=== PATIENT | male | born 1955 | race African-American/Black ===

== ENCOUNTER 2017-09-29 02:43 | Inpatient (IN) | payer BC ==
[2017-09-29 03:25] LABS: BASO % 0.7 % (0-2.0); EOS % 5.4 % (0-4.5); HEMATOCRIT 37.6 % (35.4-49); HEMOGLOBIN 12.9 GM/dL (11.7-16.9); LYMPH % 42.9 % (8-40); MCH 29.6 pg (25.7-33.7); MCHC 34.1 g/dl (32.0-35.9); MEAN CELL VOLUME 86.6 fl (80-96); MEAN PLT VOLUME 8.1 fl (7.5-11.1); MONO % 8.5 % (3.8-10.2); NEUT % 42.5 % (42.8-82.8); PLATELET COUNT 202 K/MM3 (134-434); RBC 4.35 M/mm3 (4.00-5.60); WHITE BLOOD COUNT 4.6 K/mm3 (4.0-10.0)
--- NOTE | 2017-09-29 03:38 | PDOC ---
History of Present Illness - General Chief Complaint: Rectal Bleed Stated Complaint: RECTAL BLEED Time Seen by Provider: 09/29/17 02:46 History Source: Patient Exam Limitations: No Limitations - History of Present Illness Initial Comments: 09/29/17 03:35 62m with pmh of asthma presents with brbpr as he was moving his bowels around 2am tonight. Denies abdominal pain, not on anticoagulation, no previous history of rectaql bleed, no history of hemorrhoids. No Nausea, vomiting or sick contacts. Had a colonoscopy done 4 years ago and was negative.. 09/29/17 03:38 Brought with him bloody toilet paper. Past History - Past Medical History Allergies/Adverse Reactions: Allergies Allergy/AdvReac Type Severity Reaction Status Date / Time No Known Drug Allergies Allergy Verified 09/29/17 02:46 Home Medications: Ambulatory Orders Aspirin [ASA -] 81 mg PO DAILY 05/13/13 Budesonide/Formeterol Fumarate [SYMBICORT 160/4.5mcg -] 1 inh IH DAILY 09/29/17 Omeprazole 20 mg PO DAILY 09/29/17 Asthma: Yes COPD: No GI Disorders: Yes - Surgical History Abdominal Surgery: Yes (hernia repair) GI Surgery: Yes (hernia repair) - Suicide/Smoking/Psychosocial Hx Smoking History: Never smoked Have you smoked in the past 12 months: No Information on smoking cessation initiated: No Hx Alcohol Use: No Drug/Substance Use Hx: No Substance Use Type: None Review of Systems - Review of Systems Able to Perform ROS?: Yes Is the patient limited Amharic proficient: No Constitutional: No: Symptoms Reported HEENTM: No: Symptoms Reported Respiratory: No: Symptoms reported Cardiac (ROS): No: Symptoms Reported ABD/GI: Yes: See HPI : No: Symptoms Reported Musculoskeletal: No: Symptoms Reported Integumentary: No: Symptoms Reported All Other Systems: Reviewed and Negative *Physical Exam - Vital Signs Last Vital Signs Temp Pulse Resp BP Pulse Ox 97.5 F L 92 H 20 137/80 98 09/29/17 02:46 09/29/17 02:46 09/29/17 02:46 09/29/17 02:46 09/29/17 02:46 - Physical Exam General Appearance: Yes: Nourished, Appropriately Dressed. No: Apparent Distress HEENT: positive: EOMI, MAYRA Respiratory/Chest: positive: Lungs Clear, Normal Breath Sounds. negative: Chest Tender, Respiratory Distress Cardiovascular: positive: Regular Rhythm, Regular Rate, S1, S2 Gastrointestinal/Abdominal: positive: Normal Bowel Sounds, Flat, Soft. negative : Tender, Guarding, Rebound, Tenderness Rectal Exam: positive: normal rectal tone, heme positive stool. negative: hemorrhoids Integumentary: positive: Normal Color, Dry, Warm Neurologic: positive: Fully Oriented, Alert, Normal Mood/Affect ED Treatment Course - LABORATORY CBC & Chemistry Diagram: 09/29/17 03:19 09/29/17 03:19 Medical Decision Making - Medical Decision Making 09/29/17 03:38 62m presenting with BRBPR. Will check cbc, cmp and coags. 09/29/17 06:08 h&h lower than baseline on file. Will repeat 4 hours later at 7am and reassess whether to discharge with GI consult or to consult immediately. 09/29/17 06:52 Patient signed out to Dr. Page. *DC/Admit/Observation/Transfer Diagnosis at time of Disposition: BRBPR (bright red blood per rectum) - Referrals - Patient Instructions - Post Discharge Activity
--- NOTE | 2017-09-29 03:50 | PDOC ---
Attending Attestation - Resident Resident Name: MccormackKuldeep - ED Attending Attestation I have performed the following: I have examined & evaluated the patient, The case was reviewed & discussed with the resident, I agree w/resident's findings & plan, Exceptions are as noted - HPI HPI: 09/29/17 03:47 62 M with no PMH presents to ED with BRBPR. Pt states that he had one episode of bloody stool a few hours prior to arrival to ED. He denies any abdominal pain. Denies N/V. States that he saw brown stool mixed in with blood. Denies dark or tarry stools. Pt denies h/o GI bleed. Is on baby aspirin, no other AC. Pt denies lightheadedness/cp/sob. Had colonoscopy a few years ago that was reportedly normal. - Physicial Exam PE: 09/29/17 03:49 "GENERAL: Awake, alert, and fully oriented, in no acute distress. HEAD: No signs of trauma EYES: PERRLA, EOMI, sclera anicteric, conjunctiva clear ENT: Auricles normal inspection, hearing grossly normal, nares patent, oropharynx clear without exudates. Moist mucosa NECK: Nontender, no stepoffs, Normal ROM, supple, no lymphadenopathy, JVD, or masses LUNGS: Breath sounds equal, clear to auscultation bilaterally. No wheezes, and no crackles HEART: Regular rate and rhythm, normal S1 and S2, no murmurs, rubs or gallops ABDOMEN: Soft, nontender, normoactive bowel sounds. No guarding, no rebound. No masses EXTREMITIES: Normal range of motion, no edema. No clubbing or cyanosis. No cords, erythema, or tenderness NEUROLOGICAL: Cranial nerves II through XII intact. 5/5 strength and sensation in all extremities, Normal speech, normal gait, normal cerebellar function SKIN: Warm, Dry, normal turgor, no rashes or lesions noted. RECTAL: brown stool with bright red blood, no melena, no hemorrhoids - Medical Decision Making 09/29/17 03:50 62 M with BRBPR. Likely lower GI bleed of unclear etiology. No hemorrhoids visible on exam. Pt HD stable. No clinical s/s of anemia or significant volume loss. - Labs, serial CBCs 09/29/17 06:57 Initial labs wnl Pt signed out to oncoming attending at 7am, pending repeat CBC and reassessment of vitals and clinical exam. Case discussed in detail with oncoming Emergency Physician including history, physical exam and ancillary studies. Oncoming Emergency Physician has assumed care for the patient and will complete the evaluation and treatment. Patient is aware of the plan.
[2017-09-29 03:52] LABS: INR 1.15 (0.82-1.09)
[2017-09-29 03:54] LABS: ACTIVATED PTT 23.5 SECONDS (26.9-34.4)
[2017-09-29 03:55] LABS: ALBUMIN 3.5 g/dl (3.4-5.0); ALK PHOS 87 U/L (45-117); ANION GAP 7 (8-16); BILIRUBIN,TOTAL 0.2 mg/dL (0.2-1.0); BLOOD UREA NITROGEN 26 mg/dL (7-18); CALCIUM 8.5 mg/dL (8.5-10.1); CHLORIDE 107 mmol/L (98-107); CO2 28 mmol/L (21-32); GLUCOSE,RANDOM 119 mg/dL (74-106); SGOT/AST 23 U/L (15-37); SGPT/ALT 25 U/L (12-78); SODIUM 142 mmol/L (136-145); TOT PROT 7.1 g/dl (6.4-8.2)
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
[2017-09-29 08:53] LABS: BASO % 0.6 % (0-2.0); EOS % 1.3 % (0-4.5); HEMOGLOBIN 11.9 GM/dL (11.7-16.9); LYMPH % 23.9 % (8-40); MCH 29.2 pg (25.7-33.7); MCHC 33.9 g/dl (32.0-35.9); MEAN CELL VOLUME 86.2 fl (80-96); MEAN PLT VOLUME 7.9 fl (7.5-11.1); MONO % 6.3 % (3.8-10.2); NEUT % 67.9 % (42.8-82.8); PLATELET COUNT 193 K/MM3 (134-434); RBC 4.06 M/mm3 (4.00-5.60); RDW 14.3 % (11.9-15.9); WHITE BLOOD COUNT 4.9 K/mm3 (4.0-10.0)
--- NOTE | 2017-09-29 09:21 | HP ---
CHIEF COMPLAINT: bloody stools PCP: Dr. Velasquez HISTORY OF PRESENT ILLNESS: 62 yr old man with bronchial asthma presents to ED with 1 episode of bloody stools this morning associated with dizziness. He woke up with diffuse abdominal cramping and urge to defecate. He flushed and stood up to notice bright red blood on the bathroom floor, when he looked in the toilet his stool was mixed with bright red blood. He called his when he felt dizzy, he recalls coming the ground, he thinks he may have passed out for 2 seconds, denies head trauma. He walked to the bed and felt better. In the ED he had a witnessed BM mixed with blood and clots. He takes 1 81 mg Aspirin tablet daily and a pain medication from [place] that he thinks also contains aspirin. He was having shoulder pain Thursday and took 3 tablets of the [facility] medications in the morning, 1 aspirin in the afternoon and on Thursday he took aspirin in the morning. Denies abdominal pain now, chest pain, lightheadedness, nausea, no previous hx of rectal bleeding ER course was notable for: (1) witnessed hematochezia (2) call placed to GI, Dr. sanchez Recent Travel: none CHART REVIEWED FOR FURTHER MEDICAL HX: as per previous abd/pelvis CT scan, pt has a hx of diverticuli. PAST MEDICAL HISTORY: bronchial asthma, stable on inhalers. no hospitalizations, no intubations, no exacerbations GERD since 2005 PAST SURGICAL HISTORY: right lef varicose vein removal in 2009 hernia repair, >30 yrs ago in [facility] Colonoscopy and endoscopy thinks it was 4 yrs ago and thinks it was normal Social History: Smoking: never Alcohol:occasionally has 2 shots of etoh on weekends to relax, last use on Thursday Drugs: denies Family History: denies famiy hx of cancer, early RI/stroke, HTN, DM. Allergies No Known Drug Allergies Allergy (Verified 09/29/17 02:46) HOME MEDICATIONS: Home Medications Medication Instructions Recorded Aspirin [ASA -] 81 mg PO DAILY 05/13/13 Budesonide/Formeterol Fumarate 1 inh IH DAILY 09/29/17 [SYMBICORT 160/4.5mcg -] Omeprazole 20 mg PO DAILY 09/29/17 REVIEW OF SYSTEMS CONSTITUTIONAL: Absent: fever, chills, diaphoresis, generalized weakness, malaise, loss of appetite, weight change HEENT: Absent: rhinorrhea, nasal congestion, throat pain, throat swelling, difficulty swallowing, mouth swelling, eye pain, visual changes CARDIOVASCULAR: Absent: chest pain, syncope, palpitations, irregular heart rate, lightheadedness , peripheral edema RESPIRATORY: Present: chronic cough, Absent: shortness of breath, dyspnea with exertion, orthopnea, wheezing, stridor, hemoptysis GASTROINTESTINAL: Present: hematochezia Absent: abdominal pain, abdominal distension, nausea, vomiting, diarrhea, constipation, melena, GENITOURINARY: Absent: dysuria, frequency, urgency, hesitancy, hematuria, flank pain, genital pain MUSCULOSKELETAL: Absent: myalgia, arthralgia, joint swelling, back pain, neck pain SKIN: Absent: rash, itching, pallor HEMATOLOGIC/IMMUNOLOGIC: Absent: easy bleeding, easy bruising, lymphadenopathy, frequent infections ENDOCRINE: Absent: unexplained weight gain, unexplained weight loss, heat intolerance, cold intolerance NEUROLOGIC: Absent: headache, focal weakness or paresthesias, dizziness, unsteady gait, seizure, bladder or bowel incontinence PHYSICAL EXAMINATION Vital Signs - 24 hr 09/29/17 09/29/17 09/29/17 02:46 07:18 07:22 Temperature 97.5 F L Pulse Rate 92 H Pulse Rate [ 83 Apical] Respiratory 20 18 Rate Blood Pressure 137/80 Blood Pressure 110/70 [Right Arm] O2 Sat by Pulse 98 98 100 Oximetry (%) GENERAL: Awake, alert, and fully oriented, in no acute distress. HEAD: Normal with no signs of trauma. EYES: Pupils equal, round and reactive to light, extraocular movements intact, sclera anicteric, conjunctiva clear. No lid lag. EARS, NOSE, THROAT: oropharynx clear without exudates. Moist mucous membranes. no oral lesions, no thrush, no erythema NECK: Normal range of motion, supple without lymphadenopathy, JVD, or masses. LUNGS: Breath sounds equal, rales on right base, clear on left lung through out HEART: Regular rate and rhythm, normal S1 and S2 without murmur, rub or gallop. ABDOMEN: Soft, nontender, not distended, normoactive bowel sounds, no guarding, no rebound, no masses. No hepatomegaly or splenomegaly. MUSCULOSKELETAL:No tenderness. No CVA tenderness. left 3rd digit with nail deformity. UPPER EXTREMITIES: 2+ radial pulses, warm, well-perfused. No cyanosis. No clubbing. No peripheral edema. LOWER EXTREMITIES: 2+ DP pulses, warm, well-perfused. No calf tenderness. No peripheral edema. NEUROLOGICAL: Cranial nerves II-XII intact. Normal speech. facial symmetry, 5/ 5 hand power switchboard operator, 5/5 upper muscle groups to extension and flexion, 5/5 lower muscle groups to extension and flexion. PSYCHIATRIC: Cooperative. Good eye contact. Appropriate mood and affect. SKIN: Warm, dry, normal turgor, no rashes or lesions noted, normal capillary refill. pt decline rectal exam. Laboratory Results - last 24 hr 09/29/17 09/29/17 09/29/17 03:19 03:19 03:19 WBC 4.6 D Corrected WBC (auto) RBC 4.35 Hgb 12.9 D Hct 37.6 MCV 86.6 MCH 29.6 MCHC 34.1 RDW 14.0 Plt Count 202 D MPV 8.1 D Neutrophils % 42.5 L Lymphocytes % 42.9 H Monocytes % 8.5 Eosinophils % 5.4 H D Basophils % 0.7 Nucleated RBC % Platelet Estimate Platelet Comment PT with INR 13.00 INR 1.15 H PTT (Actin FS) 23.5 L D Sodium 142 Potassium 4.0 Chloride 107 Carbon Dioxide 28 Anion Gap 7 L BUN 26 H D Creatinine 1.0 D Creat Clearance w eGFR > 60 Random Glucose 119 H Calcium 8.5 Total Bilirubin 0.2 D AST 23 D ALT 25 D Alkaline Phosphatase 87 D Total Protein 7.1 Albumin 3.5 D 09/29/17 09/29/17 06:51 08:50 WBC Cancelled 4.9 Corrected WBC (auto) Cancelled RBC Cancelled 4.06 Hgb Cancelled 11.9 Hct Cancelled 35.0 L MCV Cancelled 86.2 MCH Cancelled 29.2 MCHC Cancelled 33.9 RDW Cancelled 14.3 Plt Count Cancelled 193 MPV Cancelled 7.9 Neutrophils % Cancelled 67.9 D Lymphocytes % Cancelled 23.9 D Monocytes % Cancelled 6.3 Eosinophils % Cancelled 1.3 Basophils % Cancelled 0.6 Nucleated RBC % Cancelled Platelet Estimate Cancelled Platelet Comment Cancelled PT with INR INR PTT (Actin FS) Sodium Potassium Chloride Carbon Dioxide Anion Gap BUN Creatinine Creat Clearance w eGFR Random Glucose Calcium Total Bilirubin AST ALT Alkaline Phosphatase Total Protein Albumin ASSESSMENT/PLAN: 62 yr old man with asthma with 2 episodes of hematochezia admitted for evaluation. #Hematochezia - likely due to increased NSAID use in pt with diverticuli, likely diverticular bleed - placed NPO, pt aware not to eat or drink, may need colonoscopy/endoscopy to evaluate bleeding - type and screen, trend CBC - Dr. Sanchez consulted for GI evaluation - stop NSAIDs - IVF for hydration while NPO, NS@75cc/hr - protonix 40mg IVPUSH incase he has concurrent ugi as well #asthma - stable, will add home symbicort #DVT: contraindicated with active bleeding, SCDs while in bed #Diet NPO for now Visit type - Emergency Visit Emergency Visit: Yes ED Registration Date: 09/29/17 Care time: The patient presented to the Emergency Department on the above date and was hospitalized for further evaluation of their emergent condition. - New Patient This patient is new to me today: Yes Date on this admission: 09/29/17 - Critical Care Critical Care patient: No Hospitalist Screening - Colonoscopy Questionnaire Colonoscopy Questionnaire: Colonoscopy Questionnaire - Patient: 50 - 75 years old and never had a screening colonoscopy: No History of colon or rectal polyps, or CA: No History of IBD, Crohn's disease or UC: No History of abdominal radiation therapy as a child: No - Relative: 1 with colon or rectal CA, or polyps at age 60 or younger: No Colon or rectal CA diagnosed at age 45 or younger: No Multiple relatives with colon or rectal CA: No - Outcome: Screening Result: Negative Screen
[2017-09-29] MEDS ORDERED: PANTOPRAZOLE SODIUM 40 MG VIAL IVPUSH ONE ×2 (10:30→22:30)
[2017-09-29] MEDS: SODIUM CHLORIDE 1,000 ML IV SCH ×2 (11:21→17:33)
[2017-09-29] MEDS ORDERED: PANTOPRAZOLE SODIUM 40 MG VIAL ONE (11:29)
[2017-09-29 11:39] VITALS: BMI 31.0
--- NOTE | 2017-09-29 11:41 | EKG ---
Test Reason : Blood Pressure : / mmHG Vent. Rate : 069 BPM Atrial Rate : 069 BPM P-R Int : 128 ms QRS Dur : 088 ms QT Int : 362 ms P-R-T Axes : 055 040 043 degrees QTc Int : 387 ms NORMAL SINUS RHYTHM NORMAL ECG WHEN COMPARED WITH ECG OF 13-MAY-2013 21:52, QRS DURATION HAS DECREASED Confirmed by Nilesh Plasencia ([id number]) on 09/29/2017 11:41:05 AM Referred By: Confirmed By:Nilesh Plasencia
[2017-09-29 13:53] LABS: BASO % 0.4 % (0-2.0); EOS % 1.6 % (0-4.5); HEMATOCRIT 34.5 % (35.4-49); HEMOGLOBIN 11.6 GM/dL (11.7-16.9); LYMPH % 32.1 % (8-40); MCH 29.1 pg (25.7-33.7); MCHC 33.6 g/dl (32.0-35.9); MEAN CELL VOLUME 86.6 fl (80-96); MEAN PLT VOLUME 8.4 fl (7.5-11.1); MONO % 7.3 % (3.8-10.2); NEUT % 58.6 % (42.8-82.8); PLATELET COUNT 187 K/MM3 (134-434); RBC 3.98 M/mm3 (4.00-5.60); RDW 14.1 % (11.9-15.9); WHITE BLOOD COUNT 4.7 K/mm3 (4.0-10.0)
--- NOTE | 2017-09-29 13:59 | PN ---
Teaching Attending Note Name of Resident: Desmond Bryant ATTENDING PHYSICIAN STATEMENT I saw and evaluated the patient. I reviewed the resident's note and discussed the case with the resident. I agree with the resident's findings and plan as documented. SUBJECTIVE: Patient is a 62 yr old man with hx of bronchial asthma presents to ED. today c/ o having RBRB per rectum. As per patient , He takes a daily Aspirin for his LEs since he has PVD. Patient also takes some pain medication that he doesn't know the name for it 2x per day that has aspirin in it. He stated that he should not be taking these 2 medications at the same time since they both contain aspirin. Patient had a colonoscopy 3-4 yrs ago without any polyps. Today when he developed RBPR with lightheadedness with near syncope. OBJECTIVE: Vital Signs Temperature 97.5 F L 09/29/17 02:46 Pulse Rate 81 09/29/17 11:43 Respiratory Rate 18 09/29/17 11:43 Blood Pressure 123/83 09/29/17 11:43 O2 Sat by Pulse Oximetry (%) 99 09/29/17 11:43 GENERAL: Awake, alert, and fully oriented, in no acute distress. Nice gentleman HEAD: Normal with no signs of trauma. EYES: Pupils equal, round and reactive to light, extraocular movements intact, sclera anicteric, conjunctiva clear. No lid lag. EARS, NOSE, THROAT: oropharynx clear without exudates. Moist mucous membranes. no oral lesions, no thrush, no erythema NECK: Normal range of motion, supple without lymphadenopathy, JVD, or masses. LUNGS: Breath sounds equal, rales on right base, clear on left lung through out HEART: Regular rate and rhythm, normal S1 and S2 without murmur, rub or gallop. ABDOMEN: Soft, nontender, not distended, normoactive bowel sounds, no guarding, no rebound, no masses. No hepatomegaly or splenomegaly. EXTREMITIES: 2+ radial pulses, warm, well-perfused. No cyanosis. No clubbing. No peripheral edema. NEUROLOGICAL: Cranial nerves II-XII grossly intact. Normal speech. PSYCHIATRIC: Cooperative. Good eye contact. Appropriate mood and affect. SKIN: Warm, dry, normal turgor, no rashes or lesions noted, normal capillary refill. RECTAL: As per ED: brown stool with bright red blood, no melena, no hemorrhoids CBCD WBC 4.9 K/mm3 (4.0-10.0) 09/29/17 08:50 RBC 4.06 M/mm3 (4.00-5.60) 09/29/17 08:50 Hgb 11.9 GM/dL (11.7-16.9) 09/29/17 08:50 Hct 35.0 % (35.4-49) L 09/29/17 08:50 MCV 86.2 fl (80-96) 09/29/17 08:50 MCHC 33.9 g/dl (32.0-35.9) 09/29/17 08:50 RDW 14.3 % (11.9-15.9) 09/29/17 08:50 Plt Count 193 K/MM3 (134-434) 09/29/17 08:50 MPV 7.9 fl (7.5-11.1) 09/29/17 08:50 CMP Sodium 142 mmol/L (136-145) 09/29/17 03:19 Potassium 4.0 mmol/L (3.5-5.1) 09/29/17 03:19 Chloride 107 mmol/L (98-107) 09/29/17 03:19 Carbon Dioxide 28 mmol/L (21-32) 09/29/17 03:19 Anion Gap 7 (8-16) L 09/29/17 03:19 BUN 26 mg/dL (7-18) H D 09/29/17 03:19 Creatinine 1.0 mg/dL (0.7-1.3) D 09/29/17 03:19 Creat Clearance w eGFR > 60 (>60) 09/29/17 03:19 Random Glucose 119 mg/dL (74-106) H 09/29/17 03:19 Calcium 8.5 mg/dL (8.5-10.1) 09/29/17 03:19 Total Bilirubin 0.2 mg/dL (0.2-1.0) D 09/29/17 03:19 AST 23 U/L (15-37) D 09/29/17 03:19 ALT 25 U/L (12-78) D 09/29/17 03:19 Alkaline Phosphatase 87 U/L (45-117) D 09/29/17 03:19 Total Protein 7.1 g/dl (6.4-8.2) 09/29/17 03:19 Albumin 3.5 g/dl (3.4-5.0) D 09/29/17 03:19 Current Medications Generic Name Dose Route Start Last Admin Trade Name Wendy PRN Reason Stop Dose Admin Sodium Chloride 1,000 mls @ 75 mls/hr 09/29/17 10:30 09/29/17 11:21 Normal Saline - IV 75 mls/hr ASDIR FARNAZ Administration Pantoprazole Sodium 40 mg 09/29/17 22:30 Protonix Iv IVPUSH 09/29/17 22:31 ONCE ONE Home Medications Medication Instructions Recorded Aspirin [ASA -] 81 mg PO DAILY 05/13/13 Budesonide/Formeterol Fumarate 1 inh IH DAILY 09/29/17 [SYMBICORT 160/4.5mcg -] Omeprazole 20 mg PO DAILY 09/29/17 ASSESSMENT AND PLAN: Patient is a 62 yr old man with PMHx of bronchial asthma presents to ED with 1 episode of bloody stools this morning associated with dizziness # Acute GI bleed Upper vs lower most likely due to aspirin intake. GI consult appreciated. Type and screen for 2 units, GI consult , NPO IVF, Protonix 40mg IV BID. # Hx of Asthma: Symbicort continue # Hx of PVD on aspirin will hold the aspirin for now since an episode of bleeding and until clearance from GI. DVT Px: SCDs, early ambulation
--- NOTE | 2017-09-29 14:26 | CON.GI ---
Consult Consult Specialty:: GI Reason for Consultation:: hematochezia - History of Present Illness History of Present Illness: chart reviewed. Events noted. a 62-year-old gentleman with acute onset painless, large-volume, bright red hematochezia 2 last night. No associated chest pain, palpitations, dizziness, lightheadedness, nausea, or vomiting. Preceded by abdominal cramps. No hematemesis, abdominal pain, fever, chills, stool caliber, unintentional, weight loss. Denies recent exposure to antibiotics, history of colitis, gastric ulcers, diarrheal symptoms. Denies history of diverticulosis. Last colonoscopy 5 years ago was normal. History of daily aspirin and medication for joint pains that he gets from [facility]. - History Source History Provided By: Patient - Alcohol/Substance Use Hx Alcohol Use: No - Smoking History Smoking history: Never smoked Have you smoked in the past 12 months: No Home Medications - Allergies Allergies/Adverse Reactions: Allergies Allergy/AdvReac Type Severity Reaction Status Date / Time No Known Drug Allergies Allergy Verified 09/29/17 02:46 - Home Medications Home Medications: Ambulatory Orders Aspirin [ASA -] 81 mg PO DAILY 05/13/13 Budesonide/Formeterol Fumarate [SYMBICORT 160/4.5mcg -] 1 inh IH DAILY 09/29/17 Omeprazole 20 mg PO DAILY 09/29/17 Family Disease History - Family Disease History Family History: Unremarkable (Noncontributory) Review of Systems Findings/Remarks: as per H&P and HPI Physical Exam-GI Vital Signs: Vital Signs Temperature 97.5 F L 09/29/17 02:46 Pulse Rate 81 09/29/17 11:43 Respiratory Rate 18 09/29/17 11:43 Blood Pressure 123/83 09/29/17 11:43 O2 Sat by Pulse Oximetry (%) 99 09/29/17 11:43 Constitutional: Yes: Well Nourished, No Distress, Calm Eyes: Yes: Conjunctiva Clear HENT: Yes: Atraumatic Neck: Yes: Supple Cardiovascular: Yes: Regular Rate and Rhythm Respiratory: Yes: Regular Gastrointestinal Inspection: No: Ascites, Distention ...Auscultate: Yes: Normoactive Bowel Sounds ...Palpate: Yes: Soft. No: Firm/Rigid, Guarding, Mass, Splenomegaly, Tenderness , Tenderness, Epigastium ...Rectal Exam: Yes: Deferred Neurological: Yes: Alert, Oriented Labs: CBC, BMP 09/29/17 13:40 09/29/17 03:19 INR, PTT INR 1.15 (0.82-1.09) H 09/29/17 03:19 Laboratory Last Values WBC 4.7 K/mm3 (4.0-10.0) 09/29/17 13:40 Corrected WBC (auto) Cancelled 09/29/17 06:51 RBC 3.98 M/mm3 (4.00-5.60) L 09/29/17 13:40 Hgb 11.6 GM/dL (11.7-16.9) L 09/29/17 13:40 Hct 34.5 % (35.4-49) L 09/29/17 13:40 MCV 86.6 fl (80-96) 09/29/17 13:40 MCH 29.1 pg (25.7-33.7) 09/29/17 13:40 MCHC 33.6 g/dl (32.0-35.9) 09/29/17 13:40 RDW 14.1 % (11.9-15.9) 09/29/17 13:40 Plt Count 187 K/MM3 (134-434) 09/29/17 13:40 MPV 8.4 fl (7.5-11.1) 09/29/17 13:40 Neutrophils % 58.6 % (42.8-82.8) 09/29/17 13:40 Lymphocytes % 32.1 % (8-40) D 09/29/17 13:40 Monocytes % 7.3 % (3.8-10.2) 09/29/17 13:40 Eosinophils % 1.6 % (0-4.5) 09/29/17 13:40 Basophils % 0.4 % (0-2.0) 09/29/17 13:40 Nucleated RBC % Cancelled 09/29/17 06:51 Platelet Estimate Cancelled 09/29/17 06:51 Platelet Comment Cancelled 09/29/17 06:51 PT with INR 13.00 SEC (9.7-13.0) 09/29/17 03:19 INR 1.15 (0.82-1.09) H 09/29/17 03:19 PTT (Actin FS) 23.5 SECONDS (26.9-34.4) L D 09/29/17 03:19 Sodium 142 mmol/L (136-145) 09/29/17 03:19 Potassium 4.0 mmol/L (3.5-5.1) 09/29/17 03:19 Chloride 107 mmol/L (98-107) 09/29/17 03:19 Carbon Dioxide 28 mmol/L (21-32) 09/29/17 03:19 Anion Gap 7 (8-16) L 09/29/17 03:19 BUN 26 mg/dL (7-18) H D 09/29/17 03:19 Creatinine 1.0 mg/dL (0.7-1.3) D 09/29/17 03:19 Creat Clearance w eGFR > 60 (>60) 09/29/17 03:19 Random Glucose 119 mg/dL (74-106) H 09/29/17 03:19 Calcium 8.5 mg/dL (8.5-10.1) 09/29/17 03:19 Total Bilirubin 0.2 mg/dL (0.2-1.0) D 09/29/17 03:19 AST 23 U/L (15-37) D 09/29/17 03:19 ALT 25 U/L (12-78) D 09/29/17 03:19 Alkaline Phosphatase 87 U/L (45-117) D 09/29/17 03:19 Total Protein 7.1 g/dl (6.4-8.2) 09/29/17 03:19 Albumin 3.5 g/dl (3.4-5.0) D 09/29/17 03:19 Problem List - Problems (1) Hematochezia Code(s): K92.1 - MELENA (2) NSAID long-term use Code(s): Z79.1 - CONSTRUCTION MANAGER (CURRENT) USE OF NON-STEROIDAL NON-INFLAM (NSAID) (3) Acute blood loss anemia Code(s): D62 - ACUTE POSTHEMORRHAGIC ANEMIA (4) Acute gastrointestinal bleeding Code(s): K92.2 - GASTROINTESTINAL HEMORRHAGE, UNSPECIFIED Assessment/Plan a 62-year-old gentleman with acute onset hematochezia. Acute blood loss anemia. Hemodynamically stable. Asymptomatic at this time. Rule out colorectal cancer, diverticulosis, angiectasia, colitis, etc. Upper GI bleed possible, but unlikely given the presentation. Recommend oral hydration, clear liquid diet today. Close monitoring for recurrent bleeding. Plan upper and lower endoscopy tomorrow as discussed with the patient.
[2017-09-29] MEDS ORDERED: PEG 3350/NA SULF BICARB CL/KCL 4000 ML SOLN.RECON PO ONE (15:30)
[2017-09-29] MEDS ORDERED: BISACODYL 5 MG TABLET.DR (FP) PO ONE ×2 (15:30→17:15)
[2017-09-30] MEDS: PANTOPRAZOLE SODIUM 40 MG VIAL IVPUSH SCH ×2 (06:43→10:17)
[2017-09-30 07:34] LABS: BASO % 0.4 % (0-2.0); EOS % 2.7 % (0-4.5); HEMATOCRIT 31.7 % (35.4-49); HEMOGLOBIN 10.9 GM/dL (11.7-16.9); LYMPH % 29.4 % (8-40); MCH 29.5 pg (25.7-33.7); MCHC 34.4 g/dl (32.0-35.9); MEAN CELL VOLUME 85.8 fl (80-96); MEAN PLT VOLUME 8.5 fl (7.5-11.1); NEUT % 60.5 % (42.8-82.8); PLATELET COUNT 180 K/MM3 (134-434); RBC 3.69 M/mm3 (4.00-5.60); WHITE BLOOD COUNT 5.5 K/mm3 (4.0-10.0)
[2017-09-30 08:04] LABS: ANION GAP 5 (8-16); BLOOD UREA NITROGEN 14 mg/dL (7-18); CALCIUM 7.8 mg/dL (8.5-10.1); CHLORIDE 110 mmol/L (98-107); CO2 28 mmol/L (21-32); CREATININE 0.9 mg/dL (0.7-1.3); GLUCOSE,RANDOM 87 mg/dL (74-106); MAGNESIUM 1.8 mg/dL (1.8-2.4); POTASSIUM 3.9 mmol/L (3.5-5.1); SGOT/AST 15 U/L (15-37); SGPT/ALT 18 U/L (12-78); SODIUM 143 mmol/L (136-145)
[2017-09-30 08:06] LABS: ALK PHOS 81 U/L (45-117); BILIRUBIN,TOTAL 0.3 mg/dL (0.2-1.0)
[2017-09-30] MEDS ORDERED: PT OWN MED DRAWER 7, Y5N ONE (09:08)
[2017-09-30] MEDS ORDERED: PANTOPRAZOLE SODIUM 40 MG VIAL IVPUSH SCH (10:00)
[2017-09-30] MEDS ORDERED: BUDESONIDE/FORMETEROL FUMARATE 160/4.5 mcg INHALER IH SCH (10:00)
[2017-09-30] MEDS: SODIUM CHLORIDE 1,000 ML IV SCH (10:58)
--- NOTE | 2017-09-30 12:57 | PN ---
Progress Note (short form) - Note Progress Note: Small internal hemorrhoids, otherwise normal colonoscopy Mild gastritis and hiatal hernia, otherwise noral EGD No obvious source of Bleeding identified. doubt internal hemorrhoids is the cause acute 3 g of blood loss. Obtain MR enterography Problem List - Problems (1) Hematochezia Code(s): K92.1 - MELENA (2) NSAID long-term use Code(s): Z79.1 - PENITENTIARY (CURRENT) USE OF NON-STEROIDAL NON-INFLAM (NSAID) (3) Acute blood loss anemia Code(s): D62 - ACUTE POSTHEMORRHAGIC ANEMIA (4) Acute gastrointestinal bleeding Code(s): K92.2 - GASTROINTESTINAL HEMORRHAGE, UNSPECIFIED
[2017-09-30 13:42] VITALS: BP 126/73; PULSE 69; TEMP 97.6
--- NOTE | 2017-09-30 17:37 | PN ---
Teaching Attending Note Name of Resident: Desmond Bryant ATTENDING PHYSICIAN STATEMENT I saw and evaluated the patient. I reviewed the resident's note and discussed the case with the resident. I agree with the resident's findings and plan as documented. SUBJECTIVE: seen after EGD/colo no abd pain , no fever or chills, no hematochezia today OBJECTIVE: NAd\ Cv: RRr Lungs: CTAB ext: no edema Abd: soft, Nt, Nd ,NL BS ASSESSMENT AND PLAN: 62 y/o man with h/o Asthma , and chronic NSAids use who presented with hematochezia . 1- hematochezia . resolved 2- acute blood loss anemia. stable plan : - EGD and colo with mild gastritis and internal hemorrhoids. possible source is hemorrhoids. need MR enterography. - avoid NSAIDs - blood work in 3-4 days to be faxed to PCP - f/u with GI and PCP - bowel regimen dc home .
--- NOTE | 2017-09-30 18:18 | DS ---
Physical Exam: SUBJECTIVE: Patient seen and examined. doing well after colonoscopy and endoscopy. OBJECTIVE: Vital Signs Period Temp Pulse Resp BP Sys/Luis Pulse Ox Last 24 Hr 97.5 F-98.2 F 64-88 17-20 85-146/59-82 98-100 PHYSICAL EXAM GENERAL: The patient is awake, alert, and fully oriented, in no acute distress. EYES: PERRL, extraocular movements intact, sclera anicteric, conjunctiva clear. ENT: oropharynx clear without exudates, moist mucous membranes. NECK: Trachea midline, full range of motion, supple. LUNGS: Breath sounds equal, clear to auscultation bilaterally HEART: Regular rate and rhythm, S1, S2 without murmur, rub or gallop. ABDOMEN: Soft, nontender, nondistended, normoactive bowel sounds, no guarding, no rebound, EXTREMITIES: no edema. LABS Laboratory Tests 09/29/17 09/29/17 09/29/17 03:19 03:19 03:19 WBC 4.6 D Hgb 12.9 D Hct 37.6 Plt Count 202 D PT with INR 13.00 INR 1.15 H PTT (Actin FS) 23.5 L D Sodium 142 Potassium 4.0 BUN 26 H D Creatinine 1.0 D Random Glucose 119 H Phosphorus Magnesium Total Bilirubin 0.2 D AST 23 D ALT 25 D Alkaline Phosphatase 87 D HIV 1&2 Antibody Screen HIV P24 Antigen 09/29/17 09/29/17 09/29/17 08:50 13:40 16:30 WBC 4.9 4.7 Hgb 11.9 11.6 L Hct 35.0 L 34.5 L Plt Count 193 187 PT with INR INR PTT (Actin FS) Sodium Potassium BUN Creatinine Random Glucose Phosphorus Magnesium Total Bilirubin AST ALT Alkaline Phosphatase HIV 1&2 Antibody Screen Negative HIV P24 Antigen Negative 09/30/17 09/30/17 07:00 07:00 WBC 5.5 Hgb 10.9 L Hct 31.7 L Plt Count 180 Sodium 143 Potassium 3.9 BUN 14 D Creatinine 0.9 Random Glucose Phosphorus 3.0 Magnesium 1.8 Total Bilirubin 0.3 D AST 15 D ALT 18 D Alkaline Phosphatase 81 HOSPITAL COURSE: Date of Admission:09/29/17-Date of Discharge: 09/30/17 62 yr old man with hx of bronchial asthma was admitted to assess 2 episodes of bloody stools this morning associated with dizziness. Patient underwent colonoscopy and endoscopy to identify a source of the bleeding. Small internal hemorrhoids were identified on an otherwise normal colonoscopy. There was mild gastritis and a hiatal hernia on an otherwise normal EGD. No obvious source of bleeding identified. Patient was hemodynamically stable after the scopes, did not have a further rectal bleeding and was stable for outpatient follow-up. Since no obvious source of bleeding was identified further imaging is recommended: MRI enterography which he can undergo as outpatient. He was referred to Dr. Sanchez who will see him in the office in week and arrange for the further imaging. Summary of his labs are listed above. Minutes to complete discharge: 35 Discharge Summary Reason For Visit: BRIGHT RED BLOOD PER RECTUM Condition: Stable - Instructions Diet, Activity, Other Instructions: You were admitted for bloody stools and underwent a colonoscopy and endoscopy to find the cause by . Follow-up 1. Dr. Patel, your primary care doctor in one week for post-hospital evaluation 2. Dr. Sanchez, [facility] in one week for further evaluation and more imaging of your abdomen. Contact information has been provided, please call to make appointments. Medications: Continue your asthma medications as prescribed. Take Senna/Colace tablet and Miralax to maintain regular soft bowel movements. ( prescriptions have been sent to the pharmacy) STOP taking your aspirin. DO NOT TAKE ANY NSAIDs (nonsteriodal anti- inflammatory drugs) Recommendations: - Speak with Dr. Patel regarding restarting your aspirin therapy. - Check your blood work in 1 week, a prescription has been provided for you. If you develop chest pain, trouble breathing, rectal bleeding, faint, worsening abdominal pain, fail to pass gas, abdominal distention, fevers, vomiting blood or any new concerning symptoms please return to the hospital. Referrals: malik patel MD [Other] (FAX [phone]) Hua Sanchez MD [Staff Physician] - Disposition: HOME - Home Medications Comprehensive Discharge Medication List: Ambulatory Orders Budesonide/Formeterol Fumarate [SYMBICORT 160/4.5mcg -] 1 inh IH DAILY 09/29/17 Omeprazole 20 mg PO DAILY 09/29/17 Albuterol Sulfate [Proair Respiclick] 90 mcg IH Q6H PRN #1 [email or web address] 09/30/17 Miscellaneous Medical Supply [Outpatient Order] 1 each ASDIR #1 misc Polyethylene Glycol 3350 [Miralax (For Bowel Prep) -] 17 gm PO DAILY #1 bottle 09/30/17 Sennosides/Docusate Sodium [Senna-Docusate Sodium Tablet] 1 each PO DAILY #30 tablet 09/30/17 This patient is new to me today: No Emergency Visit: No Critical Care patient: No - Discharge Referral Referred to [facility] No
--- NOTE | 2017-10-01 12:10 | PATH ---
Surgical Pathology Report Patient Name: ASHISH JARQUIN [facility]. Rec. #: [id number] /Age/Gender: 1955 (Age: 62) / M Account: [id number] Location: [address] [place] [address]/[facility] Taken: 09/30/2017 Received: 09/30/2017 Reported: 10/01/2017 Physicians: Mckinley Meléndez M.D. Specimen(s) Received A: BX 2ND PORTION DUODENUM B: BX ANTRUM + LANDRY Clinical History GI bleed Postoperative diagnosis: Hiatal hernia, GI bleed, diverticulosis Final Diagnosis A. DUODENUM, SECOND PORTION, BIOPSY: DUODENAL MUCOSA WITHOUT SIGNIFICANT PATHOLOGIC FINDINGS. B. STOMACH, ANTRUM AND BODY, BIOPSY: GASTRIC ANTRAL AND BODY MUCOSA WITH MILD CHRONIC GASTRITIS. IMMUNOHISTOCHEMICAL STAIN FOR H. PYLORI IS NEGATIVE. Electronically Signed No Gardiner M.D. Gross Description A. Received in formalin, labeled "biopsy second portion of duodenum" are 3 wild, irregular portions of soft tissue ranging from 0.1-0.2 cm. in greatest dimension. The specimens are submitted in toto in one cassette. B. Received in formalin, labeled "biopsy antrum and body" are 3 wild, irregular portions of soft tissue ranging from 0.1-0.3 cm. in greatest dimension. The specimens are submitted in toto in one cassette. /09/30/2017 saudi09/30/2017
== END 2017-09-30 18:16 | disposition home or self-care (01) | DRG 378 ==
LOC: JER 02:43 → JERBED 09:20 → OBSVTOIN 10:49 → J5S 16:15
PROVIDERS: ADMIT Internal Medicine; ATTEND Internal Medicine
PROC: 0DD68ZX Extraction of Stomach, Via Natural or Artificial Opening Endoscopic, Diagnostic (ICD-10-PCS; 2017-09-30)
PROC: 0DJD8ZZ Inspection of Lower Intestinal Tract, Via Natural or Artificial Opening Endoscopic (ICD-10-PCS; 2017-09-30)
PROC: 0DD98ZX Extraction of Duodenum, Via Natural or Artificial Opening Endoscopic, Diagnostic (ICD-10-PCS; principal; 2017-09-30 13:00)
DX: K92.2 Gastrointestinal hemorrhage, unspecified (principal); D62 Acute posthemorrhagic anemia; K29.50 Unspecified chronic gastritis without bleeding; J45.909 Unspecified asthma, uncomplicated; K44.9 Diaphragmatic hernia without obstruction or gangrene
CPT/HCPCS: 36415; 80053; 83735; 84100; 85025; 85610; 85730; 86850; 86900; 86901; 87389; 88305-TC; 93005; 93010; 99285-25; G0378; J7030

== ENCOUNTER 2023-11-12 07:28 | Observation (INO) | payer BC ==
[2023-11-12 08:05] VITALS: BMI 28.8
[2023-11-12 08:22] LABS: BASO % 0.4 % (0-2.0); EOS % 3.1 % (0-4.5); HEMATOCRIT 35.3 % (35.4-49); HEMOGLOBIN 11.6 GM/dL (11.7-16.9); LYMPH % 32.8 % (8-40); MCH 28.8 pg (25.7-33.7); MEAN CELL VOLUME 87.4 fl (80-96); MEAN PLT VOLUME 7.5 fl (7.5-11.1); MONO % 7.2 % (3.8-10.2); NEUT % 56.5 % (42.8-82.8); PLATELET COUNT 244 10^3/uL (134-434); RBC 4.04 M/mm3 (4.00-5.60); RDW 14.9 % (11.9-15.9); RETICULOCYTES 0.98 % (0.5-1.5); WHITE BLOOD COUNT 6.2 K/mm3 (4.0-10.0)
[2023-11-12 08:29] LABS: INR 1.1 (0.83-1.09); PROTHROMBIN TIME (PATIENT) 12.4 SEC (9.7-13.0)
[2023-11-12 08:32] LABS: ACTIVATED PTT 23.7 SECONDS (25.2-36.5)
[2023-11-12 08:38] LABS: POTASSIUM 4.3 mmol/L (3.5-5.1)
[2023-11-12 08:40] LABS: CALCIUM 8.1 mg/dL (8.5-10.1)
[2023-11-12 08:41] LABS: ALBUMIN 3.2 g/dl (3.4-5.0); BLOOD UREA NITROGEN 25.7 mg/dL (7-18)
[2023-11-12 08:46] LABS: BILIRUBIN,TOTAL 0.5 mg/dL (0.2-1); TOT PROT 6.1 g/dl (6.4-8.2)
[2023-11-12] MEDS: SODIUM CHLORIDE 0.9% 1000 ML INFUS.BAG IV ONE (09:49)
[2023-11-12] MEDS ORDERED: ACETAMINOPHEN 325 MG TABLET (FP) PO PRN ×2 (10:45→17:35)
[2023-11-12] MEDS ORDERED: BUDESONIDE/FORMETEROL FUMARATE 160/4.5 mcg INHALER IH PRN (10:48)
[2023-11-12] MEDS: LACTATED RINGERS SOLUTION 1,000 ML/1,000 ML INFUS.BAG IV SCH ×2 (10:53→18:32)
[2023-11-12] MEDS: PEG 3350/NA SULF BICARB CL/KCL 4000 ML SOLN.RECON PO STA (12:30)
[2023-11-12 16:06] LABS: BASO % 0.3 % (0-2.0); EOS % 0.4 % (0-4.5); HEMATOCRIT 32.8 % (35.4-49); HEMOGLOBIN 10.4 GM/dL (11.7-16.9); MCH 27.7 pg (25.7-33.7); MCHC 31.5 g/dl (32.0-35.9); MEAN CELL VOLUME 87.7 fl (80-96); MEAN PLT VOLUME 7.5 fl (7.5-11.1); MONO % 7.4 % (3.8-10.2); NEUT % 72.9 % (42.8-82.8); PLATELET COUNT 206 10^3/uL (134-434); RBC 3.74 M/mm3 (4.00-5.60); RDW 14.9 % (11.9-15.9); WHITE BLOOD COUNT 6.6 K/mm3 (4.0-10.0)
[2023-11-12] MEDS ORDERED: KETAMINE HCL 200 MG/20 ML VIAL ONE (16:17)
[2023-11-12] MEDS: ALBUTEROL SO4 0.083% IH SOL 2.5 MG/3 ML VIAL.NEB. NEB ONE (17:00)
[2023-11-12] MEDS ORDERED: MIDAZOLAM HCL 2 MG/2 ML SINGLE DOSE VIAL ONE (17:24)
[2023-11-12] MEDS ORDERED: LACTATED RINGERS SOLUTION 1,000 ML IV SCH (18:15)
[2023-11-12] MEDS: PANTOPRAZOLE 40 MG TABLET PO SCH (18:34)
[2023-11-13 07:46] LABS: BASO % 0.3 % (0-2.0); HEMATOCRIT 28.5 % (35.4-49); HEMOGLOBIN 9.6 GM/dL (11.7-16.9); LYMPH % 33.1 % (8-40); MCH 29.7 pg (25.7-33.7); MCHC 33.6 g/dl (32.0-35.9); MEAN CELL VOLUME 88.2 fl (80-96); MEAN PLT VOLUME 7.6 fl (7.5-11.1); NEUT % 56.6 % (42.8-82.8); PLATELET COUNT 187 10^3/uL (134-434); RBC 3.23 M/mm3 (4.00-5.60); RDW 14.5 % (11.9-15.9)
[2023-11-13 08:12] LABS: CALCIUM 8.1 mg/dL (8.5-10.1)
[2023-11-13 08:13] LABS: ALBUMIN 3.1 g/dl (3.4-5.0); BLOOD UREA NITROGEN 14.6 mg/dL (7-18)
[2023-11-13 08:15] LABS: BILIRUBIN,TOTAL 0.4 mg/dL (0.2-1)
[2023-11-13 08:16] LABS: CREATININE 0.9 mg/dL (0.55-1.3); PHOSPHOROUS 3.2 mg/dL (2.5-4.9)
[2023-11-13 08:18] LABS: TOT PROT 5.7 g/dl (6.4-8.2)
[2023-11-13] MEDS: PANTOPRAZOLE 40 MG TABLET PO SCH (10:14)
[2023-11-13 15:42] LABS: BASO % 0.3 % (0-2.0); EOS % 2.1 % (0-4.5); HEMATOCRIT 28.5 % (35.4-49); HEMOGLOBIN 9.4 GM/dL (11.7-16.9); LYMPH % 24.4 % (8-40); MCH 28.9 pg (25.7-33.7); MCHC 32.9 g/dl (32.0-35.9); MEAN CELL VOLUME 87.7 fl (80-96); MEAN PLT VOLUME 7.6 fl (7.5-11.1); MONO % 7.2 % (3.8-10.2); PLATELET COUNT 194 10^3/uL (134-434); RBC 3.25 M/mm3 (4.00-5.60); RDW 14.8 % (11.9-15.9); WHITE BLOOD COUNT 6.7 K/mm3 (4.0-10.0)
[2023-11-14] MEDS: BUDESONIDE/FORMETEROL FUMARATE 160/4.5 mcg INHALER IH PRN (09:51)
[2023-11-14 13:06] VITALS: RESP 18
[2023-11-14 14:37] VITALS: BP 123/70; PULSE 76; TEMP 98.2
== END 2023-11-14 14:20 | disposition home or self-care (01) ==
LOC: JER 07:28 → JERBED 09:50 → J4S 18:35
PROVIDERS: ADMIT Internal Medicine; ATTEND Internal Medicine
PROC: 0DB68ZX Excision of Stomach, Via Natural or Artificial Opening Endoscopic, Diagnostic (ICD-10-PCS; 2023-11-12)
PROC: 3E0337Z Introduction of Electrolytic and Water Balance Substance into Peripheral Vein, Percutaneous Approach (ICD-10-PCS; principal; 2023-11-12 16:30)
DX: K57.92 Diverticulitis of intestine, part unspecified, without perforation or abscess without bleeding (principal); K29.70 Gastritis, unspecified, without bleeding; K92.1 Melena; J45.998 Other asthma; K64.9 Unspecified hemorrhoids
CPT/HCPCS: 36415; 80053; 82272; 83735; 84100; 85025; 85045; 85610; 85730; 86850; 86900; 86901; 86922; 88305-TC; 88342-TC; 93005; 93010; 94760; 99285-25; G0378